=== PATIENT | female | born 1975 | race American Indian/Alaskan Native ===

== ENCOUNTER 2019-03-26 16:11 | Emergency (ER) | payer MEDICARE ==
[2019-03-26 16:49] VITALS: BP 122/80
[2019-03-26 17:38] LABS: Basophils % (Auto) 0.5 % (0.0-1.8); Eosinophils % (Auto) 0.6 % (0.0-4.3); Hematocrit 41.4 % (30.3-42.9); Lymphocytes # (Auto) 1.3 K/mm3 (1.2-5.4); Lymphocytes % (Auto) 26.7 % (13.4-35.0); Mean Corpuscular HGB Conc 34 % (30-34); Mean Corpuscular Volume 89 fl (79-97); Monocytes # (Auto) 0.4 K/mm3 (0.0-0.8); Monocytes % (Auto) 7.9 % (0.0-7.3); Platelet Count 301 K/mm3 (140-440); Red Blood Count 4.64 M/mm3 (3.65-5.03); Red Cell Distribution Width 15.6 % (13.2-15.2)
[2019-03-26 17:58] LABS: BUN/Creatinine Ratio 9; Blood Urea Nitrogen 6 mg/dL (7-17); Hemolysis Index 27
--- NOTE | 2019-03-26 18:03 | Emergency Department Report ---
ED N/V/D HPI - General Chief complaint: Nausea/Vomiting/Diarrhea Stated complaint: BLOOD IN VOMIT Time Seen by Provider: 03/26/19 18:00 Source: patient, EMS Mode of arrival: Stretcher Limitations: No Limitations - History of Present Illness Initial comments: Patient is a 43-year-old female that presents emergency room with complaints of nausea/vomiting, abdominal pain and vomiting blood. Patient states she vomited blood at 2 PM today. Patient states she had a few beers around noon. Patient denies fever or chills. Patient states she only vomited blood one time. Patient states it was copious amounts of blood. Patient states her pain and nausea vomiting or better with rest and worse with movement. Patient states her pain is a 6 out of 10. She states she drinks. Once in a while. Patient states she smokes every day. Patient denies drug use. Patient denies past medical history except for acid reflux. MD complaint: nausea, vomiting, abdominal pain -: Sudden Description of Vomiting: bloody Associated Abdominal Pain: Yes Location: diffuse Severity: severe Pain Scale: 6 Quality: stabbing Consistency: intermittent Improves with: rest Worsens with: vomiting Associated Symptoms: nausea/vomiting. denies: myalgias, chest pain, cough, inocencia phoresis, fever/chills, headaches, loss of appetite, malaise, rash, dysuria, shortness of breath, syncope, weakness - Related Data Previous Rx's Medication Instructions Recorded Last Taken Type Esomeprazole Magnesium [NexIUM] 40 mg PO QDAY 30 Days #30 03/26/19 Unknown Rx capsule. Allergies Allergy/AdvReac Type Severity Reaction Status Date / Time No Known Allergies Allergy Unverified 03/26/19 16:50 ED Review of Systems ROS: Stated complaint: BLOOD IN VOMIT Other details as noted in HPI Constitutional: denies: chills, fever Eyes: denies: eye pain, eye discharge, vision change ENT: denies: ear pain, throat pain Respiratory: denies: cough, shortness of breath, wheezing Cardiovascular: denies: chest pain, palpitations Endocrine: no symptoms reported Gastrointestinal: abdominal pain, nausea, vomiting, hematemesis. denies: diarrhea Genitourinary: denies: urgency, dysuria, discharge Musculoskeletal: denies: back pain, joint swelling, arthralgia Skin: denies: rash, lesions Neurological: denies: headache, weakness, paresthesias Psychiatric: denies: anxiety, depression Hematological/Lymphatic: denies: easy bleeding, easy bruising ED Past Medical Hx - Past Medical History Previous Medical History?: Yes Hx GERD: Yes - Surgical History Past Surgical History?: No - Family History Family history: no significant - Social History Smoking Status: Current Every Day Smoker Substance Use Type: Alcohol - Medications Home Medications: Home Medications Medication Instructions Recorded Confirmed Last Taken Type Esomeprazole Magnesium [NexIUM] 40 mg PO QDAY 30 Days #30 03/26/19 Unknown Rx capsule.dr ED Physical Exam - General Limitations: No Limitations General appearance: alert, in no apparent distress - Head Head exam: Present: atraumatic, normocephalic - Eye Eye exam: Present: normal appearance - ENT ENT exam: Present: mucous membranes moist - Neck Neck exam: Present: normal inspection - Respiratory Respiratory exam: Present: normal lung sounds bilaterally. Absent: respiratory distress - Cardiovascular Cardiovascular Exam: Present: regular rate, normal rhythm. Absent: systolic murmur, diastolic murmur, rubs, gallop - GI/Abdominal GI/Abdominal exam: Present: soft, normal bowel sounds. Absent: distended, tenderness, guarding - Rectal Rectal exam: Present: normal inspection, heme (-) stool. Absent: black stool, bloody stool - Extremities Exam Extremities exam: Present: normal inspection - Back Exam Back exam: Present: normal inspection - Neurological Exam Neurological exam: Present: alert, oriented X3 - Psychiatric Psychiatric exam: Present: normal affect, normal mood - Skin Skin exam: Present: warm, dry, intact, normal color. Absent: rash ED Course Vital Signs 03/26/19 16:47 Temperature 98.1 F Pulse Rate 85 Respiratory 16 Rate Blood Pressure 122/80 O2 Sat by Pulse 99 Oximetry - Reevaluation(s) Reevaluation #1: Rectal exam done, with Deedee RN in the room. Normal color stool and guaiac negative 03/26/19 19:01 Reevaluation #2: I discussed all results with patient. I discussed plan of care with patient. Patient agrees with plan of care. Patient is stable for discharge. Patient was discharged home. Patient given discharge instructions. Patient voiced understanding of discharge instructions. 03/26/19 20:01 - Consultations Consultation #1: I discussed case with GI, Dr. Rashid. He recommends Nexium and to follow up in the office as an outpatient. 03/26/19 20:00 ED Medical Decision Making - Lab Data Result diagrams: 03/26/19 17:30 03/26/19 17:30 - Medical Decision Making Patient is a 43-year-old female that presents emergency room with vomiting blood times one. Patient's vomiting took place after an alcoholic beverage. Patie nt's clinical findings consistent with gastritis. Patient's guaiac negative. Patient's abdominal exam negative. Patient's labs unremarkable. Patient's H&H normal. Patient will be discharged home with a PPI. GI was consult for the care of this patient. GI recommends discharge and follow-up as an outpatient. Patient given strict ER precautions. Patient given discharge instructions. Patient stable for discharge. - Differential Diagnosis GI bleed. Vomiting blood. PUD. Abdominal pain. Critical care attestation.: If time is entered above; I have spent that time in minutes in the direct care of this critically ill patient, excluding procedure time. ED Disposition Clinical Impression: Abdominal pain Qualifiers: Abdominal location: epigastric Qualified Code(s): R10.13 - Epigastric pain Nausea & vomiting Qualifiers: Vomiting type: hematemesis Qualified Code(s): K92.0 - Hematemesis Vomiting blood Qualifiers: Nausea presence: with nausea Qualified Code(s): K92.0 - Hematemesis Gastritis Qualifiers: Gastritis type: unspecified gastritis Chronicity: acute Gastritis bleeding: with bleeding Qualified Code(s): K29.01 - Acute gastritis with bleeding Disposition: - TO HOME OR SELFCARE Is pt being admited?: No Does the pt Need Aspirin: No Condition: Stable Instructions: Gastritis (ED), Diet for Ulcers and Gastritis (ED), Gastroes ophageal Reflux Disease (ED) Additional Instructions: Patient to follow up with primary care in 2-3 days. Patient to follow up with gastroenterology in 2-3 days. Patient to return to ER if condition worsens. Patient to return to ER if she vomits more blood, notices dark stool or any strange symptom. Patient to take Tylenol when necessary for pain. Patient to rest. Patient to increase water. Patient eat a reflux diet. Patient to avoid alcohol use. Patient to avoid NSAIDs. Patient to avoid fried foods. Prescriptions: Esomeprazole Magnesium [NexIUM] 40 mg PO QDAY 30 Days #30 capsule.dr Referrals: BITA LOPEZ III, ARI- [Primary Care Provider] - 2-3 Days ESTHER ELISE MD [Staff Physician] - 2-3 Days Time of Disposition: 20:02
== END 2019-03-26 20:33 | disposition home or self-care (01) ==
LOC: ED 16:11
DX: K29.70 Gastritis, unspecified, without bleeding (principal); K92.0 Hematemesis; K21.9 Gastro-esophageal reflux disease without esophagitis; F17.200 Nicotine dependence, unspecified, uncomplicated
CPT/HCPCS: 36415; 80048; 85025